=== PATIENT | female | born 1970 | race Caucasian/White ===

== ENCOUNTER → 2020-08-02 16:09 | Outpatient (CLI) | payer OTHER, SELFPAY ==
--- NOTE | ~2020-08-02 | MM_ITS ---
EXAMINATION: MM scrn casper implant BI w juancarlos HISTORY: Screening mammogram TECHNIQUE: Craniocaudal and mediolateral oblique 3-D tomosynthesis images with implant displacement a nd synthetic 2-D images were generated. Craniocaudal and mediolateral oblique views of the breasts wi thout implant displacement were obtained using full field digital mammography. CAD analysis was submi tted and interpreted. COMPARISON: No prior mammogram is available for comparison at this institution. BREAST PARENCHYMAL COMPOSITION: The breasts are extremely dense, which lowers the sensitivity of mamm ography. FINDINGS: There are developing focal asymmetries scattered in the right breast, best seen on CC view. The left breast is stable without evidence for malignancy. IMPRESSION: 1. Developing scattered nodular densities of the right breast. 2. Additional mammographic views and possible breast ultrasound are recommended. BI-RADS Category 0: Incomplete: Needs additional imaging evaluation. Reviewed, dictated and finalized at location A. IMPRESSION: 1. Developing scattered nodular densities of the right breast. 2. Additional mammographic views and possible breast ultrasound are recommended . BI-RADS Category 0: Incomplete: Needs additional imaging evaluation.
== END ==
PROVIDERS: Visit Provider Nurse Practitioner
DX: Z12.31 Encounter for screening mammogram for malignant neoplasm of breast (principal); R92.8 Other abnormal and inconclusive findings on diagnostic imaging of breast
CPT/HCPCS: 77063; 77067

== ENCOUNTER → 2020-09-08 09:25 | Outpatient (CLI) | payer OTHER, SELFPAY ==
--- NOTE | ~2020-09-08 | MMUS_ITS ---
EXAMINATION: MM diag casper implant RT w juancarlos, US breast RT complete HISTORY: Developing scattered nodular densities reported in right breast on 08/02/2020 screening mammo gram examination TECHNIQUE: Additional 3-D tomosynthesis images of the right breast were performed and synthetic 2-D i mages were generated. CAD analysis was submitted and interpreted. High resolution complete right oscar st ultrasound was performed. COMPARISON: 08/02/2020 bilateral implant digital screening mammogram FINDINGS: MAMMOGRAPHIC FINDINGS: No suspicious mass or architectural distortion is evident. Heterogeneous multinodular thyroid stroma however may obscure masses. An, complete right breast ultrasound examination was performed. ULTRASOUND: 12:00 4 cm from nipple: 3.3 x 5.5 mm cyst with through transmission posterior enhancement. 1:00 4 cm from nipple: Parallel circumscribed 2 x 5.5 mm hypoechoic lesion without internal vasculari ty or suspicious shadowing, benign in appearance. 2:00 4 cm from nipple: 1.5 x 3 mm cyst. 2:00 4 cm from nipple: Parallel circumscribed hypoechoic 1.5 x 4.1 mm lesion without shadowing. 3:00 4 cm from nipple: Parallel circumscribed hypoechoic 2.2 x 5.6 x 5.7 mm lesion without shadowing. 10:00 9 cm from nipple: Parallel circumscribed 2.7 x 5.9 x 5 mm hypoechoic lesion without shadowing. 10:00 6 cm from nipple: 1.5 x 2.8 mm hypoechoic lesion without posterior shadowing. IMPRESSION: 1. No mammographic evidence of malignancy 2. Routine annual mammographic screening is recommended BI-RADS Category 2: Benign finding(s). Reviewed, dictated and finalized at location A. IMPRESSION: 1. No mammographic evidence of malignancy 2. Routine annual mammographic screening is recommended BI-RADS Category 2: Benign finding(s).
== END ==
PROVIDERS: Visit Provider Obstetrics & Gynecology Gynecology
DX: N60.01 Solitary cyst of right breast (principal); N63.12 Unspecified lump in the right breast, upper inner quadrant; N63.11 Unspecified lump in the right breast, upper outer quadrant
CPT/HCPCS: 76641; 77061; 77065; G0279

== ENCOUNTER → 2021-11-10 14:12 | Outpatient (CLI) | payer OTHER, SELFPAY ==
--- NOTE | ~2021-11-10 | MM_ITS ---
EXAMINATION: MM scrn casper implant BI w juancarlos HISTORY: Screening mammogram TECHNIQUE: Craniocaudal and mediolateral oblique 3-D tomosynthesis images with implant displacement a nd synthetic 2-D images were generated. Craniocaudal and mediolateral oblique views of the breasts wi thout implant displacement were obtained using full field digital mammography. CAD analysis was submi tted and interpreted. COMPARISON: Comparison to multiple prior studies sequentially, with oldest reviewed study dated 03/2017. BREAST PARENCHYMAL COMPOSITION: The breasts are heterogeneously dense, which may obscure small masses FINDINGS: There are bilateral subpectoral silicone implants. There is no evidence of suspicious mass, calcification, or architectural distortion to suggest malignancy in either breast. There has been no suspicious interval change. IMPRESSION: 1. No mammographic evidence of malignancy. 2. Recommend routine screening mammography in one year. BI-RADS Category 1: Negative Reviewed, dictated and finalized at location A.
== END ==
PROVIDERS: PCP Family Medicine; Visit Provider Obstetrics & Gynecology Gynecology
DX: Z12.31 Encounter for screening mammogram for malignant neoplasm of breast (principal)
CPT/HCPCS: 77063; 77067

== ENCOUNTER → 2022-01-23 15:59 | Outpatient (CLI) | payer OTHER, BC, SELFPAY ==
--- NOTE | ~2022-01-23 | DEXA_ITS ---
Bone Density Report Name: JUVENAL BEAN Age: 51 Sex: Female Ethnicity: White Date of : 1970 Indication: postmenopausal; screening for osteoporosis; Referring Provider: Eugenio, Halle Study: Bone densitometry was performed. Exam Date: January 23, 2022 Accession number: [id number] Bone Density: Region BMD T-score Z-score Classification AP Spine (L1-L4) 0.832 -2.0 -1.0 Osteopenia Femoral Neck (Left) 0.662 -1.7 -0.8 Osteopenia Total Hip (Left) 0.796 -1.2 -0.6 Osteopenia Femoral Neck (Right) 0.631 -2.0 -1.0 Osteopenia Total Hip (Right) 0.791 -1.2 -0.7 Osteopenia Total Hip Mean 0.794 -1.2 -0.7 Osteopenia World Health Organization criteria for BMD impression classify patients as: Normal (T-score at or above -1.0), Osteopenia (T-score between -1.0 and -2.5), or Osteoporosis (T-score at or below -2.5). 10-year Fracture Risk(1): Major Osteoporotic Fracture 5.8% Hip Fracture 0.7% Reported Risk Factors: [place] (), Neck BMD=0.631, BMI=19.9 (1) FRAX(R) Version 3.08. Fracture probability calculated for an untreated patient. Fracture probability may be lower if the patient has received treatment. Clinical Information Provided by Patient: Has used the following medications: Vitamin D, Calcium Patient maximum height was 66 Menopause Age: 49 Drinks caffeinated beverages Onset of menses at age 15 Number of children 3 Impression: The patient has low bone mass, based on the Total Spine T-score. The patient has an estimated ten-year risk of hip fracture of 0.7% and an estimated ten-year risk of major fracture of 5.8%, based on the WHO FRAX algorithm. Discussion: BONE DENSITY IS LOW AT ONE OR MORE SKELETAL SITES. This patient's lowest T-score is low at one or more skeletal sites. It meets the World Health Organization's (WHO) criteria for ?low bone mass? (T-score between -1.0 and -2.5). The patient's 10-year risk of fracture as calculated by FRAX is less than the threshold where pharmacological therapy is recommended by the National Osteoporosis Foundation (NOF). However, all treatment decisions require clinical judgment and consideration of individual patient factors, including patient preferences, comorbidities, previous drug use, risk factors not captured in the FRAX model (e.g., frailty, falls, vitamin D deficiency, increased bone turnover, interval significant decline in bone density) and possible under or overestimation of fracture risk by FRAX. The patient should follow a healthful lifestyle (good nutrition with adequate calcium and vitamin D, and appropriate weight-bearing exercise). Follow-Up: Consider repeating this study in 2 to 3 years to reassess this patient's status, or sooner if there is some new clinical indication. Reported by: CHARLENE on 01/23/2022 4:09:00 PM.
== END ==
PROVIDERS: PCP Nurse Practitioner; Visit Provider Nurse Practitioner
DX: Z78.0 Asymptomatic menopausal state (principal); M85.89 Other specified disorders of bone density and structure, multiple sites
CPT/HCPCS: 77080

== ENCOUNTER → 2022-06-12 09:37 | Outpatient (CLI) | payer OTHER, BC, SELFPAY ==
--- NOTE | ~2022-06-12 | XR_ITS ---
AP and lateral views of the left hip Clinical history: Pain Findings: No acute fracture or dislocation is seen. Osseous alignment is anatomic. The left hip joint and left SI joint are preserved. Soft tissues are unremarkable. Impression: No significant abnormality is seen. Reviewed, dictated and finalized at [facility]. Impression: No significant abnormality is seen.
--- NOTE | ~2022-06-12 | XR_ITS ---
Lumbosacral Spine: AP and lateral views Clinical History: Pain Findings: The normal lordotic curve is maintained. The vertebral bodies and posterior elements are i ntact. The intervertebral disc spaces are preserved. The sacroiliac joints are normally outlined. Impression: No significant abnormality. Reviewed, dictated and finalized at [facility]. Impression: No significant abnormality.
== END ==
PROVIDERS: PCP Emergency Medicine; Visit Provider Physician Assistant
DX: M54.50 Low back pain, unspecified (principal)
CPT/HCPCS: 72100; 73502

== ENCOUNTER 2023-02-05 14:00 | Outpatient (CLI) | payer OTHER, BC, SELFPAY ==
--- NOTE | ~2023-02-05 | MM_ITS ---
EXAMINATION: MM scrn casper implant BI w juancarlos HISTORY: Screening mammogram TECHNIQUE: Craniocaudal and mediolateral oblique 3-D tomosynthesis images with implant displacement a nd synthetic 2-D images were generated. Craniocaudal and mediolateral oblique views of the breasts wi thout implant displacement were obtained using full field digital mammography. CAD analysis was submi tted and interpreted. COMPARISON: 11/10/2021 bilateral implant screening mammogram 09/04/2020 diagnostic right implant mammogram and complete right breast ultrasound examination, report ed benign 08/02/2020, 02/16/2019 bilateral implant screening mammogram examinations BREAST PARENCHYMAL COMPOSITION: The breasts are heterogeneously dense, which may obscure small masses . FINDINGS: Status post bilateral augmentation mammoplasty. There is no evidence of suspicious mass, ca lcification, or architectural distortion to suggest malignancy in either breast. There has been no horn spicious interval change. IMPRESSION: 1. No mammographic evidence of malignancy. 2. Recommend routine screening mammography in one year. BI-RADS Category 1: Negative Reviewed, dictated and finalized at location A. 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
== END 2023-02-05 14:01 ==
LOC: MICIMG 14:00
PROVIDERS: PCP Obstetrics & Gynecology Gynecology; Visit Provider Obstetrics & Gynecology Gynecology
DX: Z12.31 Encounter for screening mammogram for malignant neoplasm of breast (principal)
CPT/HCPCS: 77063; 77067

== ENCOUNTER 2024-02-10 10:06 | Outpatient (CLI) | payer OTHER, BC, SELFPAY ==
--- NOTE | ~2024-02-10 | MM_ITS ---
EXAMINATION: MM scrn casper implant BI w juancarlos HISTORY: Screening mammogram TECHNIQUE: Craniocaudal and mediolateral oblique 3-D tomosynthesis images with implant displacement a nd synthetic 2-D images were generated. Craniocaudal and mediolateral oblique views of the breasts wi thout implant displacement were obtained using full field digital mammography. CAD analysis was submi tted and interpreted. COMPARISON: Comparison to multiple prior studies sequentially, with oldest reviewed study dated 05/2018. BREAST PARENCHYMAL COMPOSITION: Dense: The breasts are heterogeneously dense, which may obscure small masses FINDINGS: There are bilateral subpectoral silicone implants. There is no evidence of suspicious mass, calcification, or architectural distortion to suggest malignancy in either breast. There has been no suspicious interval change. IMPRESSION: 1. No mammographic evidence of malignancy. 2. Recommend routine screening mammography in one year. BI-RADS Category 1: Negative Reviewed, dictated and finalized at location B. 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
== END 2024-02-10 10:07 | disposition home or self-care (01) ==
LOC: MICIMG 10:08
PROVIDERS: PCP Nurse Practitioner; Visit Provider Nurse Practitioner
DX: Z12.31 Encounter for screening mammogram for malignant neoplasm of breast (principal); Z98.82 Breast implant status
CPT/HCPCS: 77063; 77067

== ENCOUNTER 2024-02-11 10:02 | Outpatient (CLI) | payer OTHER, BC, SELFPAY ==
--- NOTE | 2024-02-11 10:09 | EST_ITS ---
Patient Info Name: Elizabeth Mars Age: 53 years : 1970 Gender: Female Ht: 65 in Wt: 125 lbs BSA: 1.61 m2 HR: 73 bpm BP: 146 / 102 mmHg Exam Date: 02/11/2024 10:43 AM Exam Location: Echo Lab Patient Status: Outpatient Admit Date: 02/11/2024 Staff Ordering Physician: Meche Chavez MD Attending Provider: Meche Chavez MD Exercise Technologist: [facility] Exercise Physician: Yves Soni DO Exam Type: CA stress test treadmill Study Info A treadmill exercise stress test was performed. Summary 1. 1. Negative Ibrahima exercise stress test for ischemic ST changes by ECG criteria. 2. 2. Good functional capacity, achieving 8.9 METs of workload. 3. 3. Baseline hypertension. 4. 4. Appropriate HR response to exercise. 5. 5. Appropriate HR recovery at 1 minute post exercise. 6. 6. No imaging with stress testing. Protocol: Ibrahima Stress ECG Details Stage: REST Duration (min): 0 min : 58 sec Speed (mph): 0.0 Grade (%): 0 HR (bpm): 73 SBP (mmHg): 146 DBP (mmHg): 102 METS: --- Stage: REST Duration (min): 4 min : 53 sec Speed (mph): 0.0 Grade (%): 0 HR (bpm): 89 SBP (mmHg): 146 DBP (mmHg): 102 METS: --- Stage: STAGE 1 Duration (min): 1 min : 0 sec Speed (mph): 1.7 Grade (%): 10 HR (bpm): 116 SBP (mmHg): 146 DBP (mmHg): 102 METS: --- Stage: STAGE 1 Duration (min): 2 min : 0 sec Speed (mph): 1.7 Grade (%): 10 HR (bpm): 133 SBP (mmHg): 146 DBP (mmHg): 102 METS: --- Stage: STAGE 1 Duration (min): 3 min : 0 sec Speed (mph): 1.7 Grade (%): 10 HR (bpm): 137 SBP (mmHg): 168 DBP (mmHg): 99 METS: --- Stage: STAGE 2 Duration (min): 1 min : 0 sec Speed (mph): 2.5 Grade (%): 12 HR (bpm): 146 SBP (mmHg): 168 DBP (mmHg): 99 METS: --- Stage: STAGE 2 Duration (min): 2 min : 0 sec Speed (mph): 2.5 Grade (%): 12 HR (bpm): 140 SBP (mmHg): 162 DBP (mmHg): 96 METS: --- Stage: STAGE 2 Duration (min): 3 min : 0 sec Speed (mph): 2.5 Grade (%): 12 HR (bpm): 148 SBP (mmHg): 162 DBP (mmHg): 96 METS: --- Stage: STAGE 3 Duration (min): 1 min : 0 sec Speed (mph): 3.4 Grade (%): 14 HR (bpm): 157 SBP (mmHg): 170 DBP (mmHg): 96 METS: --- Stage: STAGE 3 Duration (min): 1 min : 0 sec Speed (mph): 3.4 Grade (%): 14 HR (bpm): 157 SBP (mmHg): 170 DBP (mmHg): 96 METS: --- Stage: RECOVERY Duration (min): 0 min : 59 sec Speed (mph): 0.0 Grade (%): 0 HR (bpm): 126 SBP (mmHg): 170 DBP (mmHg): 96 METS: --- Stage: RECOVERY Duration (min): 1 min : 59 sec Speed (mph): 0.0 Grade (%): 0 HR (bpm): 98 SBP (mmHg): 170 DBP (mmHg): 96 METS: --- Stage: RECOVERY Duration (min): 2 min : 59 sec Speed (mph): 0.0 Grade (%): 0 HR (bpm): 85 SBP (mmHg): 141 DBP (mmHg): 86 METS: --- Stage: RECOVERY Duration (min): 3 min : 2 sec Speed (mph): 0.0 Grade (%): 0 HR (bpm): 82 SBP (mmHg): 141 DBP (mmHg): 86 METS: --- Rest HR: 89 bpm Peak HR: 157 bpm Rest Sys BP: 146 mmHg Peak Sys BP: 170 mmHg Max Pred HR: 166 bpm % Max Pred HR: 95 % Target HR: 141 bpm Max RPP: 26,690 bpm*mmHg Fajardo Score: -1 Termination Reason: Reached target heart rate or workload Cardiac Symptoms: Baseline chest pain did not get worse with exercise Max ST Seg Deviation: 1.70 mm Total Time: 7 min : 0 sec Rest Goodson BP: 102 mmHg Peak Goodson BP: 96 mmHg Angina Score: None Total METS: 8.9 Resting ECG Sinus rhythm. Stress ECG No ST changes. Arrhythmias None. Report Signatures
== END 2024-02-11 10:03 | disposition home or self-care (01) ==
LOC: ANHCARD 10:02
PROVIDERS: PCP Nurse Practitioner; Visit Provider Family Medicine
DX: R07.2 Precordial pain (principal); Z82.49 Family history of ischemic heart disease and other diseases of the circulatory system
CPT/HCPCS: 93017

== ENCOUNTER 2024-06-11 10:15 | Outpatient (CLI) | payer OTHER, BC, SELFPAY ==
--- NOTE | ~2024-06-11 | DEXA_ITS ---
Bone Density Report Name: JUVENAL BEAN Age: 54 Sex: Female Ethnicity: White Date of : 1970 Indication: postmenopausal; screening for osteoporosis; height loss; Referring Provider: ENRIQUE, TERRI Study: Bone densitometry was performed. Exam Date: June 11, 2024 Accession number: [id number] Bone Density: Region BMD T-score Z-score Classification Femoral Neck (Left) 0.646 -1.8 -0.8 Osteopenia Total Hip (Left) 0.823 -1.0 -0.3 Normal Femoral Neck (Right) 0.649 -1.8 -0.7 Osteopenia Total Hip (Right) 0.829 -0.9 -0.2 Normal Total Hip Mean 0.826 -1.0 -0.3 Normal World Health Organization criteria for BMD impression classify patients as: Normal (T-score at or above -1.0), Osteopenia (T-score between -1.0 and -2.5), or Osteoporosis (T-score at or below -2.5). 10-year Fracture Risk: FRAX not reported because: Treated for osteoporosis Clinical Information Provided by Patient: Is being treated for osteoporosis Has used the following medications: Fosamax (i.e. alendronate), Vitamin D, Calcium Patient maximum height was 66 Menopause Age: 52 Drinks caffeinated beverages Onset of menses at age 14 Number of children 3 Impression: The patient has low bone mass, based on the Left Femoral Neck T-score. Discussion: It is important to ask patients whether they are taking their medications and to encourage continued and appropriate compliance with their osteoporosis therapies to reduce fracture risk. It is also important to review their risk factors and encourage appropriate calcium and vitamin D intakes, exercise, fall prevention and other lifestyle measures. Follow-Up: Consider a repeat BMD and Vertebral Fracture Assessment (VFA) exam in 2 years or sooner if medically necessary, to reassess this patient's status. Reported by: MARIAH on 06/11/2024 11:30:00 AM. Reviewed, dictated and finalized at location ADeisy DORAN
--- OUTSIDE RECORDS SUMMARY | 2024-06-11 11:18 | XMS_ITS | Clinical Summary ---
Author Organization [facility] [employer] Address [address] [place] [address] Care Team Providers Care Auto Garage Attendant Name Role Phone Meche Chavez MD Primary Care Provider [phone] Source Comments [facility],non-owned Affiliates and Associated Physician Practices is amultiple site organization consisting of ambulatory clinics and hospital sitesin [place] and [place]. This disclosure is being madepursuant to the Care Everywhere program and may not contain all information available regarding this patient. Last updated 17.[facility] [employer] Allergies Active Allergy Reactions Criticality Noted Date Comments Penicillins Skin Reactions Medium 03/08/2015 Medications * Be aware that medications may not be up to date on this document. Alwaysverify current medications with the patient. Medication Sig Dispensed Refills Start Date End Date Status ALPRAZolam (XANAX) 0.25 MG tablet Take 1 (one) tablet by mouth 3 times daily as needed 0 01/24/2017 Active hydrOXYzine hcl (ATARAX) 25 MG tablet Take 1 (one) tablet by mouth 4 times daily as needed 01/06/2021 Active alendronate (Fosamax) 70 MG tablet TAKE 1 TABLET BY MOUTH ONCE WEEKLY 02/05/2022 Active atorvastatin (Lipitor) 20 MG tablet 01/23/2023 Active Tretinoin (Altreno) 0.05 % lotion Apply to affected area once daily At night. Cosmetic use, bypass PA, offer jay 45 g 1 01/06/2024 Active metoprolol tartrate IR (Lopressor) 12.5 MG TABS tablet 01/14/2024 Active famotidine (Pepcid) 40 MG tablet 02/11/2024 Active Active Problems Problem Noted Date Diagnosed Date Seborrheic keratoses, inflamed 04/02/2022 Xerosis cutis 04/02/2022 Basal cell carcinoma (BCC) of right latter-day regio n 12/13/2020 Multiple benign melanocytic nevi of upper and lower extremities and trunk 12/13/2020 Solar lentiginosis 12/13/2020 Seborrheic keratosis 12/13/2020 Neoplasm of uncertain behavior of skin Assessment & Plan (09/14/2020 11:20 AM CDT): - R latter-day, r/o BCC - Shave Biopsy (see procedure note) - Post-biopsy handout given - Wound care instructions reviewed - Will call patient with biopsy results. If intervention is indicated, will make arrangements at that time Assessment & Plan (04/29/2020 9:34 AM POND SUPERVISOR): Vertex scalp, shave bx: BCC wc rev Actinic keratosis 04/29/2020 Assessment & Plan (09/14/2020 11:20 AM CDT): - R cheek, still present s/p cryotherapy x1 still favor AK but will bx at next visit if persistent - Counseled on diagnosis, etiology, natural disease course- including pre- malignant nature of lesions and association with sun exposure - Cryotherapy performed today (see procedure note) - Wound care reviewed, post-cryo handout given Assessment & Plan (04/29/2020 9:38 AM POND SUPERVISOR): LN2 to sternal notch, rt cheek =2 lesions wc rev Actinic skin damage 04/29/2020 Assessment & Plan (09/14/2020 11:20 AM CDT): - Chronic - Extensive lesions associated with sun damage and increased risk of skin cancer - Reviewed concerning signs for development of skin cancer - Counseled on importance of daily sun protection, recommend OTC broad spectrum, SPF >30 - Advised monthly self skin exams Assessment & Plan (04/29/2020 9:38 AM POND SUPERVISOR): Sun protection 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) 04/29/2020 Other benign neoplasm of skin of trunk 6 Nevus, non-neoplastic 09/07/2015 Other melanin hyperpigmentation 03/08/2015 Melanocytic nevus 03/08/2015 History of squamous cell carcinoma of skin 03/08 Encounters Date Type Department Care Team Description 05/28/2024 Travel 03/31/2024 9:50 AM POND SUPERVISOR Office Visit [facility] - Cosmetic Dermatology [address] [place] [address] Laura Good MD Basal cell carcinoma (BCC) of abdomen (Primary Dx); Basal cell carcinoma (BCC) of chest from Last 3 Months Immunizations Name Administration Dates Next Due INFLUENZA VACCINE 01/20/2022,12/30/2020 Family History Medical History Relation Name Comments Cancer - Skin, Non Melanoma Father Cancer - Skin, Non Melanoma Mother Cancer - Skin, Non Melanoma Sister Asthma Neg Hx CVA Neg Hx Cancer - Breast Neg Hx Cancer - Other Neg Hx Cancer - Skin, Melanoma Neg Hx Eczema Neg Hx Hemophilia Neg Hx Psoriasis Neg Hx Relation Name Status Comments Father Mother Sister Social History Tobacco Use Types Packs/Day Years Used Date Smoking Tobacco: Never Smokeless Tobacco: Never Tobacco Cessation:Counseling Given: Not Answered Alcohol Use Standard Drinks/Week Comments Yes 0 (1 standard drink = 0.6 oz pur e alcohol) Sex and Gender Information Value Date Recorded Sex Assigned at Not on file Gender Identity Not on file Sexual Orientation Not on file Last Filed Vital Signs Vital Sign Reading Time Taken Comments Blood Pressure 134/98 01/23/2021 6:53 AM POND SUPERVISOR Pulse 65 01/23/2021 6:53 AM POND SUPERVISOR Temperature - - Respiratory Rate - - Oxygen Saturation 98% 01/23/2019 7:41 AM POND SUPERVISOR Inhaled Oxygen Concentration - - Weight 54.4 kg (120 lb) 01/23/2021 6:53 AM POND SUPERVISOR Height 167.6 cm (5' 6 ) 01/23/2021 6:53 AM POND SUPERVISOR Body Mass Index 19.37 01/23/2021 6:53 AM POND SUPERVISOR Plan of Treatment Upcoming Encounters Date Type Department Care Team (Late st Contact Info) Description 08/18/2024 11:20 AM CDT Office Visit [facility] - Cosmetic Dermatology [address] [place] [address] Laura Good MD [address] [facility] [address] [address] Health Maintenance Due Date Last Done Comments COLOGUARD (AGES 45-75) - COL ON CA SCREENING [address] COLONOGRAPHY - COLON CA SCREENING 1970 FIT - COLON CA SCREENING 1970 FLEX SIG - COLON CA SCREENING 1970 MAMMOGRAM 1970 PAP SMEAR 1970 HIV SCREENING 02/14/1984 HEPATITIS C SCREENING 02/09/1987 DTAP/TDAP/TD VACCINES (1 - Tdap) 02/14/1988 HEPATITIS B VACCINE (1 of 3 - 19+ 3-dose series) 02/14/1988 PNEUMOCOCCAL VACCINE 50+ (1 of 1 - PCV) 2019 ZOSTER VACCINE (1 of 2) 2019 COVID-19 VACCINE (1 - 2023-2 5 season) 2023 INFLUENZA VACCINE (#1) 2023 2, 12/30/2020 DEPRESSION SCREENING 03/18/2024 COLONOSCOPY - COLON CA SCREENING 07/27/2030 07/27/2020 Colorectal Cancer Screening 07/27/2030 HIB VACCINE Aged Out No longer eligi ble based on patient's age to complete this topic HPV VACCINE Aged Out No longer eligi ble based on patient's age to complete this topic MENINGOCOCCAL (Group B) VACCINE SHARED DECISION-MAKING Aged Out No longer eligible based on patient's age to complete this topic MENINGOCOCCAL GROUPS A/C/Y/W VACCINE Aged Out No longer eligible b ased on patient's age to complete this topic Procedures Procedure Name Priority Date/Time Associated Diagnosis Comments MO DESTR MALIG TRUNK,EXTREM 1.1-2 CM Routine 03/31/2024 1:11 PM POND SUPERVISOR Basal cell carcinoma (BCC) of abdomen Basal cell carcinoma (BCC) of chest MO DESTR MALIG TRUNK,EXTREM 0.6-1 CM Routine 03/31/2024 1:11 PM POND SUPERVISOR Basal cell carcinoma (BCC) of abdomen Basal cell carcinoma (BCC) of chest from Last 3 Months Results * MO DESTR MALIG TRUNK,EXTREM 0.6-1 CM, MO DESTR MALIG TRUNK,EXTREM 1.1-2 CM (03/31/2024 1:11 PM POND SUPERVISOR) Laura Reed MD - 03/31/2024 1:11 PM POND SUPERVISOR Laura Good MD 03/31/2024 1:13 PM PROCEDURE: Electrodessication and Curettage Patient was educated on purpose, risks/benefits and potential adverse effects, 100% chance of scar, statistics of cure, small chance of infection and recurrence. Informed consent obtained. A time out was performed immediately prior to the procedure: patient and provider/staff verbally confirmed correct patient, correct site, and correct procedure. ATTENDING PHYSICIAN: Laura Good MD PRIMARY SURGEON: Laura Good MD DIAGNOSIS: BCC LOCATION: sternal notch SIZE OF LESION PRE-OP: 0.8cm x 0.6cm The surgical site was prepped with alcohol. Anesthesia: Lidocaine 1% with epinephrine buffered with sodium bicarbonate locally injected, total of 1.0 cc used. Curettage was performed with 4 mm curette over entire lesion in three different directional axis' Electrodessication was then performed to entire wound bed. SIZE AFTER FIRST PASS: 1.0 cm The above curettage and electrodessication technique was repeated twice more over the lesion. DRESSING: Plain Vaseline petroleum jelly and Band-Aid. Wound care instructions were given to the patient both orally and in writing. Patient tolerated the procedure well. Laura Good MD 1:11 PM, 03/31/2024 PROCEDURE: Electrodessication and Curettage Patient was educated on purpose, risks/benefits and potential adverse effects, 100% chance of scar, statistics of cure, small chance of infection and recurrence. Informed consent obtained. A time out was performed immediately prior to the procedure: patient and provider/staff verbally confirmed correct patient, correct site, and correct procedure. ATTENDING PHYSICIAN: Laura Good MD PRIMARY SURGEON: Laura Good MD DIAGNOSIS: BCC LOCATION: left abdomen SIZE OF LESION PRE-OP: 0.9cm x 0.7cm The surgical site was prepped with alcohol. Anesthesia: Lidocaine 1% with epinephrine buffered with sodium bicarbonate locally injected, total of 2.0 cc used. Curettage was performed with 4 mm curette over entire lesion in three different directional axis' Electrodessication was then performed to entire wound bed. SIZE AFTER FIRST PASS: 1.1 cm The above curettage and electrodessication technique was repeated twice more over the lesion. DRESSING: Plain Vaseline petroleum jelly and Band-Aid. Wound care instructions were given to the patient both orally and in writing. Patient tolerated the procedure well. Laura Good MD 1:12 PM, 03/31/2024 Laura Good MD PROCEDURE/MAE R SURGICAL ORDERABLES from Last 3 Months Care Teams Auto Garage Attendant Relationship Specialty Start Date End Date Meche Chavez MD [address] [place] [id number] PCP - General 08/20/17
--- OUTSIDE RECORDS SUMMARY | 2024-06-11 11:18 | XMS_ITS | Clinical Summary ---
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 Name Role Phone Unavailable Primary Care Provider Unavailabl e Social History Tobacco Use Types Packs/Day Years Used Date Smoking Tobacco: Never Assessed Comments Unknown Sex and Gender Information Value Date Recorded Sex Assigned at Not on file Legal Sex Female 5:38 PM CDT Gender Identity Not on file Sexual Orientation Not on file Plan of Treatment Health Maintenance Due Date Last Done Comments Cervical Cancer Screening Pa p Smear (Age 30 to 64) Every 3 Years 1969 Colorectal Cancer Screening Colonoscopy (10 Years) 1969 Annual Physical 02/14/1972 Hepatitis C 1987 DTaP, Tdap and Td Vaccines ( 1 - Tdap) 02/14/1988 Hepatitis B Vaccines (1 of 3 - 19+ 3-dose series) 02/14/1988 Cervical Cancer Screening Pa p with HPV Testing (Age 30 to 64) Every 5 Years 1999 Cervical Cancer Screening with HPV 1999 Mammogram Screening 2009 Zoster Vaccines (1 of 2) 2019 COVID-19 Vaccine (2023-2 5 season) 2023 Influenza Adult (#1) 2023 Meningococcal B Vaccine Aged Out No l onger eligible based on patient's age to complete this topic Meningococcal Vaccine Aged Out No ainsley jung eligible based on patient's age to complete this topic Pneumococcal Vaccine: Pediat rics (0 to 5 Years) and At-Risk Patients (6 to 64 Years) Aged Out No longer eligible b ased on patient's age to complete this topic RSV Immunizations Under 20 Months Aged Out No longer eligible based on patient's age to complete this topic
== END 2024-06-11 10:16 | disposition home or self-care (01) ==
LOC: ANHIMG 10:16
PROVIDERS: PCP Family Medicine; Visit Provider Nurse Practitioner
DX: M85.852 Other specified disorders of bone density and structure, left thigh (principal); M85.851 Other specified disorders of bone density and structure, right thigh
CPT/HCPCS: 77080